=== PATIENT | female | born 1970 | race Caucasian/White ===

== ENCOUNTER → 2018-01-10 | Outpatient (CLI) | payer OTHER ==
[~2018-01-10] MED LIST: PRILOSEC 20 MG20 MG PO; ULTRAM 50MG TAB50 MG PO
== END ==
LOC: ULTRA 11:17
DX: R10.2 Pelvic and perineal pain (principal)

== ENCOUNTER 2020-12-12 23:52 | Emergency (ER) | payer OTHER ==
[~2020-12-12] VITALS: Ht 165.1 cm; Wt 54.4 kg
[2020-12-12 23:58] VITALS: BP 117/80
[2020-12-13] MEDS ORDERED: NORCO5 PO (02:12)
== END 2020-12-13 02:24 | disposition home or self-care (01) ==
LOC: ER 23:52
DX: S99.821A Other specified injuries of right foot, initial encounter (principal); Z88.5 Allergy status to narcotic agent; Z79.899 Other long term (current) drug therapy; W50.0XXA Accidental hit or strike by another person, initial encounter; Y93.89 Activity, other specified; Y92.89 Other specified places as the place of occurrence of the external cause; Y99.9 Unspecified external cause status